=== PATIENT | male | born 2000 | race Caucasian/White ===

== ENCOUNTER 2022-03-17 14:50 | Day surgery (SDC) | payer OTHER ==
[2022-03-17] MEDS ORDERED: Midazolam HCl 2 mg/2 ml Vial ONE ×2 (15:11→15:47)
[2022-03-17] MEDS ORDERED: fentaNYL Citrate/PF 100 MCG/2 ML SYRINGE ONE (15:12)
[2022-03-17] MEDS ORDERED: Ketorolac Tromethamine 30 MG/ML VIAL ONE (15:47)
[2022-03-17] MEDS ORDERED: Promethazine HCl 25 MG/ML VIAL ONE (16:03)
[2022-03-17] MEDS ORDERED: ePHEDrine 50 MG/ML VIAL ONE (16:15)
[2022-03-17] MEDS ORDERED: Ondansetron PF 4 MG/2 ML Vial ONE (16:15)
[2022-03-17] MEDS ORDERED: PROPOFOL 200 MG/20 ML VIAL ONE (16:15)
[2022-03-17] MEDS ORDERED: Dexamethasone 20 MG/5 ML VIAL ONE (16:15)
[2022-03-17] MEDS ORDERED: Lidocaine 1% PF 5 ML VIAL ONE (16:15)
[2022-03-17] MEDS ORDERED: CEFAZOLIN 2 GM VIAL ONE (16:29)
[2022-03-17] MEDS ORDERED: Sodium Chloride 0.9% 100 ML ONE (16:29)
[2022-03-17] MEDS ORDERED: Bupivacaine PF 0.5% 30 ML VIAL ONE (16:34)
== END 2022-03-17 19:00 | disposition home or self-care (01) ==
LOC: SDC 14:50
PROVIDERS: ATTEND Orthopaedic Surgery
PROC: 0PSM04Z Reposition Right Carpal with Internal Fixation Device, Open Approach (ICD-10-PCS; principal; 2022-03-17)
DX: S62.171A Displaced fracture of trapezium [larger multangular], right wrist, initial encounter for closed fracture (principal); Z20.822 Contact with and (suspected) exposure to COVID-19; V89.2XXA Person injured in unspecified motor-vehicle accident, traffic, initial encounter
CPT/HCPCS: 76000; 87811; C1713; J0690; J1100; J1885; J2250; J2405; J2550; J2704; J3490; S0020